=== PATIENT | female | born 1990 ===

== ENCOUNTER 2019-12-25 22:52 | Inpatient (IN) | payer OTHER ==
[~2019-12-25] VITALS: Ht 162.6 cm; Wt 80.0 kg
[2019-12-26] MEDS ORDERED: MAGNESIUM SULF. PMX 20GM/500ML 500 ML IV SCH ×2 (00:11→01:30)
[2019-12-26] MEDS ORDERED: LACTATED RINGERS 1,000 ML IV PRN (00:11)
[2019-12-26] MEDS ORDERED: CALCIUM GLUCONATE 4.6 MEQ/10 ML IV PRN (00:30)
[2019-12-26 01:44] LABS: BASOPHILS % (AUTO) 0 % (0-1); EOSINOPHILS # (AUTO) 0.13 x10^3/uL (0-0.4); EOSINOPHILS % (AUTO) 1 % (1-7); LYMPHOCYTES # (AUTO) 0.64 x10^3/uL (1-3.4); LYMPHOCYTES % (AUTO) 5 % (22-44); MD NO; MEAN CORPUSCULAR HEMOGLOBIN 29.6 pg (27.0-34.8); MEAN CORPUSCULAR HGB CONC 33.9 g/dL (32.4-35.8); MEAN CORPUSCULAR VOLUME 87.4 fL (80-100); MEAN PLATELET VOLUME 7.1 fL (7.4-10.4); MONOCYTES % (AUTO) 1 % (2-9); NEUTROPHILS # (AUTO) 11.16 x10^3/uL (1.8-6.8); NEUTROPHILS % (AUTO) 93 % (42-75); PLATELET COUNT 265 x10^3/uL (130-400); RED BLOOD COUNT 4.44 x10^6/uL (3.82-5.3); RED CELL DISTRIBUTION WIDTH 14.1 % (9.6-15.2)
[2019-12-26 01:55] LABS: ALANINE AMINOTRANSFERASE 28 U/L (12-78); ALBUMIN 2.7 g/dL (3.4-5.0); ANION GAP 10 mmol/L (5-15); CALCIUM 7.5 mg/dL (8.5-10.1); CHLORIDE 109 mmol/L (98-107)
[2019-12-26 01:57] LABS: ALKALINE PHOSPHATASE 61 U/L (45-117); BILIRUBIN,TOTAL 0.3 mg/dL (0.2-1.0); CREATININE 0.49 mg/dL (0.55-1.02); TOTAL PROTEIN 6.5 g/dL (6.4-8.2)
[2019-12-26] MEDS ORDERED: ONDANSETRON 2MG/ML, 2ML ONE ×4 (02:04→14:26)
[2019-12-26] MEDS: ONDANSETRON 2MG/ML, 2ML IVPush PRN ×3 (02:10→13:14)
[2019-12-26] MEDS: PENICILLIN GK 2,500,000 UNITS in DEXTROSE 5% 100 ML IVPB SCH ×3 (03:20→11:26)
[2019-12-26] MEDS ORDERED: MAGNESIUM SULF. PMX 20GM/500ML 500 ML IV ONE (03:37)
[2019-12-26] MEDS ORDERED: INSULIN INFUSION FOR ICU PROTOCOL XX PRN (08:00)
[2019-12-26] MEDS ORDERED: REGULAR INSULIN 100 UNITS in SODIUM CHLORIDE 0.9% 99 ML IV PRN (08:00)
[2019-12-26 09:04] VITALS: BP 117/69
[2019-12-26 09:46] LABS: MICROSCOPIC INDICATED
[2019-12-26] MEDS ORDERED: D5%-LACTATED RINGERS 1,000 ML IV SCH ×2 (10:00→10:04)
[2019-12-26] MEDS ORDERED: THROMBIN (RECOMBINANT) 5,000 UNIT VIAL TP ONE (11:11)
[2019-12-26] MEDS ORDERED: METHYLERGONOVINE 0.2 MG/ML IM ONE (11:11)
[2019-12-26] MEDS ORDERED: EPHEDRINE 50 MG/ML, 1ML IVPush PRN (12:00)
[2019-12-26] MEDS ORDERED: ALBUTEROL SULFATE 2.5 MG/3 ML NPPB PRN (12:00)
[2019-12-26] MEDS ORDERED: HYDROcodone/APAP 7.5-325MG/15ML UDC PO PRN (12:00)
[2019-12-26] MEDS ORDERED: MEPERIDINE/PF 25MG/0.5ML IVPush PRN (12:00)
[2019-12-26] MEDS ORDERED: ONDANSETRON 2MG/ML, 2ML IVPush PRN (12:00)
[2019-12-26] MEDS ORDERED: HYDROmorphone 2 MG/ML, 1ML IVPush PRN (12:00)
[2019-12-26] MEDS ORDERED: FENTANYL PF 100 MCG/2ML IV PRN (12:00)
[2019-12-26] MEDS ORDERED: PROMETHAZINE 25 MG/ML, 1ML IV PRN (12:00)
[2019-12-26] MEDS ORDERED: hydrALAzine 20 MG/ML, 1ML IV PRN (12:00)
[2019-12-26] MEDS ORDERED: LABETALOL 5MG/ML, 20ML IV PRN (12:00)
[2019-12-26] MEDS ORDERED: MIDAZOLAM 1 MG/ML, 2ML IV PRN (12:00)
[2019-12-26] MEDS ORDERED: METOPROLOL 1 MG/ML, 5ML IV PRN (12:00)
[2019-12-26] MEDS ORDERED: OXYcodone 5 MG/5 ML ORAL.SOL UDC PO PRN (12:00)
[2019-12-26 12:27] LABS: CHLORIDE 105 mmol/L (98-107)
[2019-12-26] MEDS ORDERED: METOCLOPRAMIDE 5 MG/ML, 2ML ONE ×2 (12:29→14:21)
[2019-12-26] MEDS ORDERED: SODIUM CITRATE/CITRIC ACID 30 ML UDC ONE ×2 (12:29→14:21)
[2019-12-26 12:42] LABS: ALANINE AMINOTRANSFERASE 24 U/L (12-78); ALBUMIN 2.6 g/dL (3.4-5.0); ALKALINE PHOSPHATASE 59 U/L (45-117); ANION GAP 8 mmol/L (5-15); BILIRUBIN,TOTAL 0.3 mg/dL (0.2-1.0); CALCIUM 6.3 mg/dL (8.5-10.1); CREATININE 0.53 mg/dL (0.55-1.02); TOTAL PROTEIN 6.5 g/dL (6.4-8.2)
[2019-12-26] MEDS ORDERED: LIDOCAINE PF 2%, 5ML ONE (14:21)
[2019-12-26] MEDS ORDERED: PROPOFOL 10 MG/ML, 50ML ONE (14:21)
[2019-12-26] MEDS ORDERED: OXYTOCIN 10 UNITS/ML, 1ML ONE ×2 (14:21→14:26)
[2019-12-26] MEDS ORDERED: SUCCINYLCHOLINE 20 MG/ML, 10ML ONE (14:21)
[2019-12-26] MEDS ORDERED: CEFAZOLIN 1,000 MG ONE (14:26)
[2019-12-26] MEDS ORDERED: DEXAMETHASONE 4 MG/ML, 1ML ONE (14:26)
[2019-12-26] MEDS ORDERED: PHENYLEPHRINE 10 MG/ML ONE (14:26)
[2019-12-26] MEDS ORDERED: SODIUM BICARBONATE 1 MEQ/ML, 50ML VIAL ONE (14:26)
[2019-12-26] MEDS ORDERED: FENTANYL PF 100 MCG/2ML ONE ×2 (14:26→14:52)
[2019-12-26] MEDS ORDERED: EPHEDRINE 50 MG/ML, 1ML ONE (14:26)
[2019-12-26] MEDS ORDERED: KETOROLAC 30 MG/1 ML ONE (14:26)
[2019-12-26] MEDS ORDERED: HYDROmorphone 2 MG/ML, 1ML ONE (14:52)
[2019-12-26] MEDS ORDERED: NEWBORN KIT ONE (15:15)
[2019-12-26] MEDS: LACTATED RINGERS 1,000 ML IV SCH (15:30)
[2019-12-26] MEDS: KETOROLAC 30 MG/1 ML IV SCH ×2 (15:30→21:32)
[2019-12-26] MEDS ORDERED: LACTATED RINGERS 1,000 ML IV SCH (15:43)
[2019-12-26] MEDS ORDERED: ONDANSETRON 2MG/ML, 2ML IV PRN (16:00)
[2019-12-26] MEDS ORDERED: ACETAMINOPHEN 325 MG TABLET PO PRN (16:00)
[2019-12-26] MEDS ORDERED: SIMETHICONE 80 MG CHEW TAB PO PRN (16:00)
[2019-12-26] MEDS ORDERED: BISACODYL 10 MG SUPP PR PRN (16:00)
[2019-12-26] MEDS ORDERED: METHYLERGONOVINE 0.2 MG/ML IM PRN (16:00)
[2019-12-26] MEDS ORDERED: CARBOPROST TROMETHAMINE 250 MCG/ML, 1ML IM PRN (16:00)
[2019-12-26] MEDS ORDERED: OXYcodone IR 5MG TABLET PO PRN (16:00)
[2019-12-26] MEDS ORDERED: OXYcodone/APAP 5/325MG TABLET PO PRN (16:00)
[2019-12-26] MEDS ORDERED: MISOPROSTOL 200 MCG TABLET PR PRN (16:00)
[2019-12-26] MEDS ORDERED: OXYTOCIN 30U/ 0.9% NaCL 500ML 500 ML ONE (16:04)
[2019-12-26] MEDS: OXYTOCIN 30U/ 0.9% NaCL 500ML 500 ML IV SCH (16:15)
[2019-12-26] MEDS ORDERED: OXYcodone 5 MG/5 ML ORAL.SOL UDC ONE (16:20)
[2019-12-26 19:45] VITALS: BP 110/69
[2019-12-26] MEDS ORDERED: AZITHROMYCIN 500 MG TABLET PO SCH (22:00)
[2019-12-26] MEDS ORDERED: BETAMETHASONE 6 MG/ML, 5ML IM SCH (22:20)
[2019-12-26 23:26] LABS: MEAN CORPUSCULAR HEMOGLOBIN 29.8 pg (27.0-34.8); MEAN CORPUSCULAR HGB CONC 33.8 g/dL (32.4-35.8); MEAN CORPUSCULAR VOLUME 88.2 fL (80-100); PLATELET COUNT 270 x10^3/uL (130-400); RED BLOOD COUNT 3.85 x10^6/uL (3.82-5.3)
[2019-12-26 23:42] LABS: MD YES
[2019-12-26 23:46] LABS: <PLATELET ESTIMATE> ADEQUATE; <PLT MORPHOLOGY> NORMAL PLT MORPH; <RBC MORPHOLOGY> NORMAL; BAND#(MANUAL) 0.97 x10^3/uL; BANDS%(MANUAL) 5 % (0-7); LYMPH#(MANUAL) 1.16 x10^3/uL (1-3.4); LYMPHS% (MANUAL) 6 % (22-44); MONOS#(MANUAL) 0.19 x10^3/uL (0.3-2.7); MONOS% (MANUAL) 1 % (2-9); SEG#(MANUAL) 16.98 x10^3/uL (1.8-6.8); SEGS% (MANUAL) 88 % (42-75)
[2019-12-27 00:30] VITALS: BP 94/58
[2019-12-27 00:44] LABS: MICROSCOPIC INDICATED
[2019-12-27] MEDS ORDERED: MAGNESIUM SULF. PMX 20GM/500ML 500 ML IV SCH (01:30)
[2019-12-27] MEDS: LACTATED RINGERS 1,000 ML IV SCH ×3 (01:43→21:43)
[2019-12-27] MEDS: OXYTOCIN 30U/ 0.9% NaCL 500ML 500 ML IV SCH ×3 (01:43→21:43)
[2019-12-27] MEDS: KETOROLAC 30 MG/1 ML IV SCH ×4 (03:47→21:53)
[2019-12-27 04:00] VITALS: BP 103/59
[2019-12-27] MEDS: PRENATAL VIT/IRON/FA 1 EACH TABLET PO SCH (07:54)
[2019-12-27] MEDS: DOCUSATE 100 MG CAPSULE PO PRN ×2 (07:54→21:53)
[2019-12-27] MEDS ORDERED: REGULAR INSULIN 100 UNITS in SODIUM CHLORIDE 0.9% 99 ML IV PRN (08:00)
[2019-12-27 08:30] VITALS: BP 106/57
[2019-12-27 13:30] VITALS: BP 113/73
[2019-12-27 19:55] VITALS: BP 102/67
[2019-12-28] MEDS: KETOROLAC 30 MG/1 ML IV SCH ×2 (03:58→09:27)
[2019-12-28] MEDS: LACTATED RINGERS 1,000 ML IV SCH ×2 (07:43→17:43)
[2019-12-28] MEDS: OXYTOCIN 30U/ 0.9% NaCL 500ML 500 ML IV SCH ×2 (07:43→17:43)
[2019-12-28] MEDS: DOCUSATE 100 MG CAPSULE PO PRN ×2 (09:27→19:44)
[2019-12-28] MEDS: PRENATAL VIT/IRON/FA 1 EACH TABLET PO SCH (09:27)
[2019-12-28 09:33] VITALS: BP 120/81
[2019-12-28] MEDS ORDERED: IBUPROFEN 600 MG TABLET PO PRN (16:00)
[2019-12-28] MEDS ORDERED: KETOROLAC 30 MG/1 ML ONE (16:02)
[2019-12-28] MEDS ORDERED: KETOROLAC 30 MG/1 ML IVPush ONE (16:30)
[2019-12-28 19:49] VITALS: BP 119/74
[2019-12-29] MEDS: LACTATED RINGERS 1,000 ML IV SCH (03:43)
[2019-12-29] MEDS: OXYTOCIN 30U/ 0.9% NaCL 500ML 500 ML IV SCH (03:43)
[2019-12-29 07:35] VITALS: BP 115/79
[2019-12-29] MEDS: PRENATAL VIT/IRON/FA 1 EACH TABLET PO SCH (09:00)
[2019-12-29 20:00] VITALS: BP 124/78
[2019-12-30 07:30] VITALS: BP 121/80
[2019-12-30] MEDS ORDERED: OXYC-302 PO (07:46)
[2019-12-30] MEDS ORDERED: FERR324T5 PO (07:46)
[2019-12-30] MEDS ORDERED: DOCU-131 PO (07:46)
[2019-12-30] MEDS ORDERED: IBUP-1222 PO (07:46)
[2019-12-30] MEDS: DOCUSATE 100 MG CAPSULE PO PRN (08:06)
[2019-12-30] MEDS: PRENATAL VIT/IRON/FA 1 EACH TABLET PO SCH (08:06)
== END 2019-12-30 11:00 | disposition home or self-care (01) | DRG 786 ==
LOC: LDIP 23:55 → 2NE 12-26 17:55 → 2NW 12-26 18:28
PROVIDERS: ADMIT Obstetrics & Gynecology Maternal & Fetal Medicine; ATTEND Obstetrics & Gynecology Maternal & Fetal Medicine
PROC: 10D00Z1 Extraction of Products of Conception, Low, Open Approach (ICD-10-PCS; principal; 2019-12-26)
PROC: 0T9B70Z Drainage of Bladder with Drainage Device, Via Natural or Artificial Opening (ICD-10-PCS; 2019-12-26)
DX: O40.2XX1 Polyhydramnios, second trimester, fetus 1 (principal); O60.12X1 Preterm labor second trimester with preterm delivery second trimester, fetus 1; O45.92 Premature separation of placenta, unspecified, second trimester; O60.12X2 Preterm labor second trimester with preterm delivery second trimester, fetus 2; O26.872 Cervical shortening, second trimester; O40.2XX2 Polyhydramnios, second trimester, fetus 2; O24.429 Gestational diabetes mellitus in childbirth, unspecified control; O30.042 Twin pregnancy, dichorionic/diamniotic, second trimester; O32.1XX1 Maternal care for breech presentation, fetus 1; O90.81 Anemia of the puerperium; D64.9 Anemia, unspecified; O99.89 Other specified diseases and conditions complicating pregnancy, childbirth and the puerperium; N73.6 Female pelvic peritoneal adhesions (postinfective); Z20.828 Contact with and (suspected) exposure to other viral communicable diseases; Z37.2 Twins, both liveborn; Z90.79 Acquired absence of other genital organ(s); Z3A.24 24 weeks gestation of pregnancy
CPT/HCPCS: 36415; J7121; 80053; 81001; 82962; 83036; 83605; 83735; 85025; 86592; 86850; 86900; 88305; G0378; J0690; J1100; J1170; J1885; J2405; J2540; J2550; J2704; J3010; J0330; J2210; J2370; J2590; J2765; J3475; U0001-CS